=== PATIENT | female | born 1965 | race Caucasian/White ===

== ENCOUNTER 2016-10-24 11:41 | Emergency (ER) | payer OTHER ==
[2016-10-24 12:29] VITALS: BP 129/81
--- NOTE | 2016-10-24 12:40 | UC ---
Head Injury HPI - HPI Summary HPI Summary: WENT TO SLEEP AROUND 11:30 PM LAST NIGHT. HEARD THE DOG BARKING AND FOUND HER ON THE FLOOR BY THE BED. PT WAS GROGGY AND NOT SPEAKING CLEARLY INITIALLY BUT THEN THIS RESOLVED. PT REPORTS SHE IS A VERY HEAVY SLEEPER AND WHEN SHE IS HALF ASLEEP IS OFTEN NONSENSICAL WHEN SHE TALKS. STRUCK THE BACK/ LEFT SIDE OF HER HEAD ON THE FLOOR (CONCRETE COVERED BY LINOLEUM). HAS A HERNÁNDEZ AND SOME DIZZINESS. HAD SLIGHT NAUSEA WHICH IS NOW RESOLVED. NO EMESIS. NO VISUAL DISTURBANCES. NOT ON BLOOD THINNERS. - History Of Current Complaint Chief Complaint: UCHeadInjury Stated Complaint: HEAD INJURY DIZZY Time Seen by Provider: 10/24/16 12:11 Hx Obtained From: Patient, Family/Senior Accounting Associate - Onset/Duration: Sudden Onset, Lasting Hours, Still Present Severity Currently: Moderate Severity Initially: Moderate Pain Intensity: 2 Pain Scale Used: 0-10 Numeric Character: Dull Aggravating Factor(s): Nothing Alleviating Factor(s): Nothing Associated Signs And Symptoms: Positive: Confusion, Nausea. Negative: LOC ( Time In Secs./Mins/Hrs), LOC Duration Unknown, Memory Loss, Seizure, Epistaxis, Dental Malocclusion, Neck Pain, Vomiting - Allergies/Home Medications Allergies/Adverse Reactions: Allergies Allergy/AdvReac Type Severity Reaction Status Date / Time No Known Allergies Allergy Verified 10/24/16 11:49 Home Medications: Home Medications Bupropion XL* [Wellbutrin XL *] 1 tab PO QAM 10/24/16 [History Confirmed ] Citalopram TAB* [Celexa TAB*] 1 tab PO QAM 10/24/16 [History Confirmed 10/24/16] PMH/Surg Hx/FS Hx/Imm Hx Psychological History: Anxiety - Surgical History Surgical History: None - Family History Family History: STROKE - Social History Alcohol Use: Weekly Substance Use Type: None Smoking Status (MU): Never Smoked Tobacco - Immunization History Most Recent Tetanus Shot: UNKNOWN Review of Systems Constitutional: Negative Skin: Negative Respiratory: Negative Cardiovascular: Negative Gastrointestinal: Nausea Neurological: Headache, Other - DIZZY All Other Systems Reviewed And Are Negative: Yes Physical Exam Triage Information Reviewed: Yes Appearance: Well-Appearing, No Pain Distress, Well-Nourished Vital Signs: Initial Vital Signs Temp 98.3 F 10/24/16 11:54 Pulse 93 10/24/16 11:54 Resp 16 10/24/16 11:54 BP 129/81 10/24/16 11:54 Pulse Ox 100 10/24/16 11:54 Vital Signs Reviewed: Yes Eyes: Positive: Conjunctiva Clear ENT: Positive: Hearing grossly normal, Pharynx normal, TMs normal Neck: Positive: Supple, Nontender, No Lymphadenopathy Respiratory Exam: Normal Cardiovascular Exam: Normal Abdomen Description: Positive: Soft Musculoskeletal: Positive: No Edema Neurological: Positive: Alert, Other: - CN II-XII GROSSLY INTACT BILATERALLY. NEG PRONATOR DRIFT. NEGATIVE ROMBERG. FINGER TO NOSE INTACT BILATERALLY. HEEL TO [place]TISTE INTACT BILATERALLY. HEEL TO TOE INTACT BILATERALLY. RAPID ALTERNATING MVMTS INTACT. 5/5 STRENGTH Psychological: Positive: Normal Response To Family, Age Appropriate Behavior Skin: Negative: rashes Head Injury Course/Dx - Differential Dx/Diagnosis Provider Diagnoses: CONCUSSION Discharge - Discharge Plan Condition: Stable Disposition: HOME Patient Education Materials: Concussion (ED) Referrals: Karen Harper MD [Primary Care Provider] - If Needed Additional Instructions: YOUR SYMPTOMS SHOULD IMPROVE OVER THE NEXT SEVERAL DAYS. IF YOU HAVE PERSISTENT SYMPTOMS YOU MAY HAVE POST CONCUSSIVE SYNDROME WHICH CAN LAST WEEKS OR MONTHS. SHOULD THIS HAPPEN FOLLOW-UP WITH YOUR PCP OR [facility] USE OTC TYLENOL FOR HEADACHE. OKAY FOR IBUPROFEN OR ALEVE AFTER 24 HRS. AVOID PROLONGED SCREEN TIME, STAY WELL RESTED AND HYDRATED. GO TO THE ER WITHOUT FAIL IF YOU DEVELOP UNEQUAL PUPILS, VISUAL DISTURBANCE, GAIT INSTABILITY, SPEECH DIFFICULTY, NAUSEA/VOMITING, WORSENING HEADACHE, DIZZINESS, CONFUSION, WEAKNESS OR ANY OTHER CONCERNING SYMPTOMS. [facility]
== END 2016-10-24 12:52 | disposition home or self-care (01) ==
LOC: UCEAST 11:41
DX: S06.0X9A Concussion with loss of consciousness of unspecified duration, initial encounter (principal); W06.XXXA Fall from bed, initial encounter; Y93.9 Activity, unspecified; Y99.9 Unspecified external cause status
CPT/HCPCS: 99211; G0463

== ENCOUNTER 2018-09-22 23:06 | Emergency (ER) | payer BC ==
[2018-09-23] MEDS ORDERED: oxyCODONE/Acetamin 5/325 MG* TAB PO ONE (01:31)
--- NOTE | 2018-09-23 02:02 | ED ---
Upper Extremity Pain - HPI Summary HPI Summary: This patient is a 53 year old F presenting to [facility] accompanied by her daughter with a chief complaint of right shoulder pain since 1500 yesterday. Pt states she fell and braced it with her right hand. Pt notes she has an existing issue with her right shoulder and is getting it treated by Dr. Deleon, orthopedics, and by physical therapy. She states her pain is greater than baseline. The patient rates the pain 5/10 in severity. Symptoms aggravated by movement. Symptoms alleviated by rest. Pt took 3 ibuprofen tablets at 1530 and 4 at 2200 yesterday. - History of Current Complaint Chief Complaint: EDShoulderClavicleInj Stated Complaint: INJURED RT SHOULDER PER PT Time Seen by Provider: 09/23/18 01:22 Hx Obtained From: Patient Mechanism Of Injury: Fall From A Standing Position - braced fall with her right hand Onset/Duration: Started Hours Ago - 11 Timing: Constant, Lasting Hours - 11 Severity Initially: Moderate Severity Currently: Moderate Pain Location: Shoulder - right Aggravating Factor(s): Movement Alleviating Factor(s): Rest Associated Signs & Symptoms: Positive: Negative - Allergies/Home Medications Allergies/Adverse Reactions: Allergies Allergy/AdvReac Type Severity Reaction Status Date / Time No Known Allergies Allergy Verified 09/22/18 23:15 PMH/Surg Hx/FS Hx/Imm Hx Previously Healthy: No Endocrine/Hematology History: Denies: Hx Diabetes, Hx Thyroid Disease Cardiovascular History: Denies: Hx Hypertension Respiratory History: Denies: Hx Asthma, Hx Chronic Obstructive Pulmonary Disease (COPD) GI History: Denies: Hx Ulcer History: Denies: Hx Renal Disease EENT History: Denies: Hx Deafness - Cancer History Hx Chemotherapy: No Hx Radiation Therapy: No - Surgical History Surgical History: None Infectious Disease History: No Infectious Disease History: Denies: Hx Clostridium Difficile, Hx Hepatitis, Hx Human Immunodeficiency Virus (HIV), Hx of Known/Suspected MRSA, Hx Shingles, Hx Tuberculosis, Hx Known/ Suspected VRE, Hx Known/Suspected VRSA, History Other Infectious Disease, Traveled Outside the [place] in Last 30 Days - Family History Known Family History: Positive: None Family History: STROKE - Social History Alcohol Use: Weekly Alcohol Amount: 2-3 times weekly Hx Substance Use: No Substance Use Type: Reports: None Hx Tobacco Use: No Smoking Status (MU): Never Smoked Tobacco Do You Chew or Dip Tobacco: No Have You Chewed or Dipped Tobacco in the LAST YEAR: No Have You Smoked in the Last Year: No Review of Systems Negative: Fever Musculoskeletal: Other - right shoulder pain All Other Systems Reviewed And Are Negative: Yes Physical Exam - Summary Physical Exam Summary: VITAL SIGNS: Reviewed. GENERAL: Patient is a well-developed and nourished FEMALE who is lying comfortable in the stretcher. Patient is not in any acute respiratory distress. HEAD AND FACE: No signs of trauma. No ecchymosis, hematomas or skull depressions. No sinus tenderness. EYES: PERRLA, EOMI x 2, No injected conjunctiva, no nystagmus. EARS: Hearing grossly intact. Ear canals and tympanic membranes are within normal limits. MOUTH: Oropharynx within normal limits. NECK: Supple, trachea is midline, no adenopathy, no JVD, no carotid bruit, no c- spine tenderness, neck with full ROM CHEST: Symmetric, no tenderness at palpation LUNGS: Clear to auscultation bilaterally. No wheezing or crackles. CVS: Regular rate and rhythm, S1 and S2 present, no murmurs or gallops appreciated. ABDOMEN: Soft, non-tender. No signs of distention. No rebound no guarding, and no masses palpated. Bowel sounds are normal. EXTREMITIES: Right shoulder pain from movement with abduction. Neurovascular exam is intact. FROM in all major joints, no edema, no cyanosis or clubbing. NEURO: Alert and oriented x 3. No acute neurological deficits. Speech is normal and follows commands. SKIN: Dry and warm Triage Information Reviewed: Yes Vital Signs On Initial Exam: Initial Vitals Temp Pulse Resp BP Pulse Ox 98.1 F 65 16 112/69 95 09/22/18 23:10 09/22/18 23:10 09/22/18 23:10 09/22/18 23:10 09/22/18 23:10 Vital Signs Reviewed: Yes Diagnostics - Vital Signs Vital Signs Temp Pulse Resp BP Pulse Ox 09/23/18 01:35 16 09/22/18 23:10 98.1 F 65 16 112/69 95 - Laboratory Lab Statement: Any lab studies that have been ordered have been reviewed, and results considered in the medical decision making process. - Radiology Shoulder X-ray Radiology Interpretation Completed By: ED Physician Summary of Radiographic Findings: no fracture seen Course/Dx - Course Course Of Treatment: This patient is a 53 year old F presenting to [facility] accompanied by her daughter with a chief complaint of right shoulder pain since 1500 yesterday. Pt states she fell and braced it with her right hand. Pt notes she has an existing issue with her right shoulder and is getting it treated by Dr. Deleon, orthopedics, and by physical therapy. She states her pain is greater than baseline. The patient rates the pain 5/10 in severity. Symptoms aggravated by movement. Symptoms alleviated by rest. Pt took 3 ibuprofen tablets at 1530 and 4 at 2200 yesterday. Physical exam shows right shoulder pain from movement with abduction and neurovascular exam is intact. Shoulder x-ray shows no fractures. During ED course, the pt was given Percocet. Dx is right shoulder pain. Pt is agreeable to discharge. Pt was told to follow up with Dr. Hinojosa, orthopedics, within 1 day and to return to the ED for any new or worsening symptoms. - Diagnoses Provider Diagnoses: Right shoulder pain Discharge - Sign-Out/Discharge Documenting (check all that apply): Patient Departure - discharge Patient Received Moderate/Deep Sedation with Procedure: No - Discharge Plan Condition: Stable Disposition: HOME Prescriptions: oxyCODONE/Acetamin 5/325 MG* [Percocet 5/325 TAB*] 1 tab PO Q6H PRN #10 tab MDD 4 PRN Reason: Pain Patient Education Materials: Shoulder Pain (ED) Referrals: Sheridan Soria MD [Primary Care Provider] - Cleo Hinojosa MD [Medical Doctor] - 1 Day Additional Instructions: Follow up with Dr. Hinojosa, orthopedics, within 1 day. Return to the ED for any new or worsening symptoms. - Attestation Statements Document Initiated by Scribe: Yes Documenting Scribe: Trevor Hartman Provider For Whom Riveraibjim is Documenting (Include Credential): Dr. Janny Juarez MD Scribe Attestation: I, ray Levine for Dr. Janny Juarez MD on 09/23/18 at 0302. Status of Scribe Document: Ready
[2018-09-23 02:20] VITALS: BP 128/59
== END 2018-09-23 02:19 | disposition home or self-care (01) ==
LOC: ED 23:06
DX: M25.511 Pain in right shoulder (principal)
CPT/HCPCS: 99282; A9270-GY